=== PATIENT | female | born 1930 | race Caucasian/White ===

== ENCOUNTER 2016-12-19 13:10 | Observation (INO) | payer OTHER, BC ==
[~2016-12-19] VITALS: Ht 160 cm; Wt 78.7 kg
[~2016-12-19 13:10] MED LIST: ADVIL,NUPRIN,M200 MG PO; AMLODIPINE BESY10 MG PO; AMOXICILLIN875 MG PO; ASPIR 8181 M1 PO; CADUET 10/801 TABLET PO; COZAAR100 MG PO; CRESTOR20 MG PO; LIPITOR80 MG PO; LISINOPRIL5 MG PO; PLAVIX75 MG PO; PREDNISONE10 MG PO; SPIRIVA RESPIMAT4 GM IH; TOPROL XL50 MG PO; ZESTRIL2.5 MG PO
[2016-12-19 14:46] LABS: EOSINOPHIL (%) 2.2 % (0-5); EOSINOPHIL COUNT 0.1 K/uL (0-0.3); HEMATOCRIT 35.4 % (36.0-46.0); IMMATURE GRANULOCYTE (%) 0.4 % (0.0-0.7); INSTRUMENT ABS NEUTROPHIL CT 3.1 K/uL; LYMPHOCYTE COUNT 1.5 K/uL (1.0-2.8); MCHC 32.5 G/DL (30.0-36.0); MCV 86.1 FL (83-99); MEAN PLAT.VOLUME 9.8 uM^3 (9.5-12.4); MONOCYTE (%) 11.6 % (3-12); MONOCYTE COUNT 0.6 K/uL (0-0.8); NEUTROPHIL (%) 57.2 % (45-76); NEUTROPHIL COUNT 3.1 K/uL (1.8-6.4); PLATELET COUNT 144 K/uL (156-360); RBC DIS.WIDTH-CV 13.9 % (11.8-14.6); RBC DIS.WIDTH-SD 43.9 % (39-53); RED BLOOD COUNT 4.11 M/uL (3.80-5.20); WHITE BLOOD COUNT 5.4 K/uL (4.1-10.2)
[2016-12-19 14:52] LABS: INTER. NORMALIZED RATIO 1.1
[2016-12-19 14:55] LABS: CHLORIDE 110 mEq/L (99-109); POTASSIUM 4.3 mEq/L (3.7-5.4); SODIUM 138 mEq/L (136-147)
[2016-12-19 14:56] LABS: MAGNESIUM 2.4 mg/dL (1.3-2.7)
[2016-12-19 14:57] LABS: GLUCOSE 90 mg/dL (70-99)
[2016-12-19 14:58] LABS: ANION GAP 9 MEQ/L (2-14)
[2016-12-19 15:01] LABS: GFR ESTIMATE (CALCULATED) 32 mL/min/
[2016-12-19 15:02] LABS: UREA NITROGEN (BUN) 30 mg/dL (9-23)
[2016-12-19 15:06] LABS: TROP-I INTERPRETATION NEGATIVE; TROPONIN-I 0.01 ng/mL (0.0-0.30)
[2016-12-19 17:39] LABS: TROP-I INTERPRETATION NEGATIVE; TROPONIN-I < 0.01 ng/mL (0.0-0.30)
[2016-12-19 17:51] VITALS: BP 171/79
[2016-12-19 23:30] LABS: TROP-I INTERPRETATION NEGATIVE; TROPONIN-I < 0.01 ng/mL (0.0-0.30)
[2016-12-19 23:59] VITALS: BP 135/65
[2016-12-20 03:47] VITALS: BP 134/69
[2016-12-20 08:10] VITALS: BP 154/70
[2016-12-20] MEDS ORDERED: IMDUR120 MG PO (09:50)
== END 2016-12-20 11:10 | disposition home or self-care (01) ==
LOC: EME 13:10 → EDOF 16:50 → ENRESERV 16:53 → 5WEST 17:31
PROVIDERS: Emergency Medicine; Internal Medicine
DX: I25.118 Atherosclerotic heart disease of native coronary artery with other forms of angina pectoris (principal); Z95.5 Presence of coronary angioplasty implant and graft; I25.2 Old myocardial infarction; I35.0 Nonrheumatic aortic (valve) stenosis; I12.9 Hypertensive chronic kidney disease with stage 1 through stage 4 chronic kidney disease, or unspecified chronic kidney disease; N18.9 Chronic kidney disease, unspecified; E11.22 Type 2 diabetes mellitus with diabetic chronic kidney disease; I47.2 Ventricular tachycardia; I35.1 Nonrheumatic aortic (valve) insufficiency; I34.1 Nonrheumatic mitral (valve) prolapse; Z95.810 Presence of automatic (implantable) cardiac defibrillator; E78.5 Hyperlipidemia, unspecified; Z79.82 Long term (current) use of aspirin; Z79.02 Long term (current) use of antithrombotics/antiplatelets; Z85.3 Personal history of malignant neoplasm of breast
CPT/HCPCS: 71010; 80048; 83735; 84484; 85025; 85610; 85730; 93005; 94640; 99281; 99285; G0378; J1650

== ENCOUNTER 2017-04-02 12:35 | Observation (INO) | payer OTHER, BC ==
[~2017-04-02] VITALS: Ht 152.4 cm; Wt 72.2 kg
[~2017-04-02 12:35] MED LIST changes: +AMLODIPINE BESYL5 MG PO; +ARICEPT5 MG PO; +BREO ELLIPTA I1 EACH IH; +ERGOCALCIF50000 UNIT PO; +IMDUR120 MG PO; +IMDUR60 MG PO; +LEXAPRO10 MG PO; +NITROSTAT0.4 MG PO; +PROAIR HFA8.5 GM IH; +VITAMIN D31000 UNI2 PO
[2017-04-02 13:28] LABS: HEMATOCRIT 34.2 % (36.0-46.0); HEMOGLOBIN 11.1 G/DL (11.9-15.5); MCH 28.8 PG (29.0-34.0); MCHC 32.5 G/DL (30.0-36.0); MCV 88.6 FL (83-99); PLATELET COUNT 149 K/uL (156-360); RBC DIS.WIDTH-CV 13.8 % (11.8-14.6); RBC DIS.WIDTH-SD 44.9 % (39-53); RED BLOOD COUNT 3.86 M/uL (3.80-5.20); WHITE BLOOD COUNT 5.2 K/uL (4.1-10.2)
[2017-04-02 13:43] LABS: CHLORIDE 104 mEq/L (99-109); POTASSIUM 3.8 mEq/L (3.7-5.4); SODIUM 135 mEq/L (136-147)
[2017-04-02 13:45] LABS: GLUCOSE 94 mg/dL (70-99)
[2017-04-02 13:49] LABS: CREATININE 1.4 mg/dL (0.6-1.3); GFR ESTIMATE (CALCULATED) 38 mL/min/
[2017-04-02 13:50] LABS: TROP-I INTERPRETATION NEGATIVE; TROPONIN-I < 0.01 ng/mL (0.0-0.30); UREA NITROGEN (BUN) 23 mg/dL (9-23)
[2017-04-02] MEDS ORDERED: SPIRIVA RESPIMAT4 GM IH (15:20)
[2017-04-02] MEDS ORDERED: IRON325 M1 PO (15:21)
[2017-04-02] MEDS ORDERED: FLUTICASONE PRO16 GM BOTH NARES (15:21)
[2017-04-02 17:12] VITALS: BP 183/77
[2017-04-02 17:42] LABS: TROP-I INTERPRETATION NEGATIVE; TROPONIN-I < 0.01 ng/mL (0.0-0.30)
[2017-04-02 19:01] VITALS: BP 141/67
[2017-04-02 23:30] VITALS: BP 156/74
[2017-04-03 04:05] VITALS: BP 178/77
[2017-04-03 04:48] VITALS: BP 158/62
[2017-04-03 05:33] LABS: HEMATOCRIT 33.7 % (36.0-46.0); HEMOGLOBIN 10.7 G/DL (11.9-15.5); MCH 28.1 PG (29.0-34.0); MCHC 31.8 G/DL (30.0-36.0); MCV 88.5 FL (83-99); PLATELET COUNT 150 K/uL (156-360); RBC DIS.WIDTH-CV 13.7 % (11.8-14.6); RBC DIS.WIDTH-SD 44.4 % (39-53); RED BLOOD COUNT 3.81 M/uL (3.80-5.20); WHITE BLOOD COUNT 4.5 K/uL (4.1-10.2)
[2017-04-03 05:45] LABS: TROP-I INTERPRETATION NEGATIVE; TROPONIN-I < 0.01 ng/mL (0.0-0.30)
[2017-04-03 05:54] LABS: CHLORIDE 106 MEQ/L (99-109); CREATININE 1.4 MG/DL (0.6-1.3); GFR ESTIMATE (CALCULATED) 38 mL/min/; GLUCOSE 88 mg/dL (70-99); POTASSIUM 4.1 MEQ/L (3.7-5.4); SODIUM 139 MEQ/L (136-147); UREA NITROGEN (BUN) 21 mg/dL (9-23)
[2017-04-03] MEDS ORDERED: RANEXA500 MG PO (08:16)
[2017-04-03] MEDS ORDERED: IMDUR30 MG PO (08:18)
[2017-04-03 08:32] VITALS: BP 141/89
== END 2017-04-03 12:55 | disposition home or self-care (01) ==
LOC: EME 12:35 → 5WEST 14:19 → EDOF 14:19 → ENRESERV 14:25 → EDOF 14:28 → CANRESERV 14:45 → ENRESERV 14:45 → EDOF 15:41 → 5WEST 16:52 → ENPENDDIS 04-03 → 5WEST 04-03 12:55
PROVIDERS: Internal Medicine
DX: R07.9 Chest pain, unspecified (principal); I25.10 Atherosclerotic heart disease of native coronary artery without angina pectoris; I25.82 Chronic total occlusion of coronary artery; I25.2 Old myocardial infarction; I12.9 Hypertensive chronic kidney disease with stage 1 through stage 4 chronic kidney disease, or unspecified chronic kidney disease; N18.3 Chronic kidney disease, stage 3 (moderate); D63.1 Anemia in chronic kidney disease; J43.9 Emphysema, unspecified; E78.5 Hyperlipidemia, unspecified; Z95.5 Presence of coronary angioplasty implant and graft; I34.1 Nonrheumatic mitral (valve) prolapse; Z95.810 Presence of automatic (implantable) cardiac defibrillator; I47.2 Ventricular tachycardia; E11.22 Type 2 diabetes mellitus with diabetic chronic kidney disease; I35.0 Nonrheumatic aortic (valve) stenosis; Z87.891 Personal history of nicotine dependence; J32.9 Chronic sinusitis, unspecified; Z82.49 Family history of ischemic heart disease and other diseases of the circulatory system; Z79.82 Long term (current) use of aspirin; Z86.73 Personal history of transient ischemic attack (TIA), and cerebral infarction without residual deficits; Z90.49 Acquired absence of other specified parts of digestive tract; Z90.710 Acquired absence of both cervix and uterus
CPT/HCPCS: 71020; 80048; 84484; 85027; 93005; 94640; 94640 76; 99202; 99281; 99285; G0378; J1644